=== PATIENT | male | born 1945 | race Caucasian/White ===

== ENCOUNTER → 2017-01-29 | Day surgery (SDC) | payer MEDICARE, OTHER ==
[~2017-01-29] MED LIST: BUPIVACAINE HCL PF 0.75% 30 ML VIAL ONE; CYCL-36 PO; LACTATED RINGER'S 1000 ML INJ 1,000 ML ONE; LIDOCAINE 1.5%/EPINEPHrine 1:200,000 PF SOLN 30 ML AMP ONE; LORTA5 PO; MIDAZOLAM HCL 5 MG/ML VIAL (1 ML) ONE; ONDA4 PO; PROPOFOL 200 MG/20 ML AMP IV ONE; RIVA20 PO; SIMV40TA PO; TAB-TAB PO; TRAZ100 PO; ceFAZolin INJ 1,000 MG VIAL ONE
--- NOTE | 2017-01-30 17:41 | MP ---
cc: YEHUDA PRIETO DATE OF SURGERY 01/29/17 PREOPERATIVE DIAGNOSIS Left shoulder impingement with partial rotator cuff tear. POSTOPERATIVE DIAGNOSIS Left shoulder impingement with partial rotator cuff tear. Labral tear and 30% interstitial biceps tendon tear. SURGEON Dr. Yehuda Prieto BANQUET ATTENDANT SJ Gonzales The surgical procedure was assisted by my Advanced Registered Nurse Practitioner. My WATER MAINTENANCE SUPERVISOR presence was necessary throughout this case for the manipulation and positioning of the surgical extremity. My WATER MAINTENANCE SUPERVISOR was assisting me throughout the duration of this procedure. The skill set of an Advance Registered Nurse Practitioner was medically necessary to complete this procedure. During the surgical case, the surgical technology instructor was working at the back table and the Advance Registered Nurse Practitioner was directly assisting me. PROCEDURE 1. Left shoulder arthroscopic subacromial decompression with partial acromioplasty. 2. Left shoulder arthroscopic rotator cuff repair. 3. Left shoulder extensive debridement of anterior labrum, posterior labrum, and biceps tendon. ANESTHESIA Regional and general. ESTIMATED BLOOD LOSS Minimal. PROCEDURE The patient had regional anesthesia performed. He was then brought back to the operative theater. General anesthesia was performed. He was placed into a lateral decubitus position. He had a well-padded down leg and an axillary roll applied. The patient's left upper extremity was prepped and draped in the usual sterile fashion after he had been placed into 12 pounds of in-line traction. We start with the standard posterior portal followed by anterior portal in the soft spot. The diagnostic arthroscopy the glenohumeral joint showed minimal chondromalacia of the glenohumeral joint. There were no loose bodies in the axillary pouch. There was a [place] complex noted in the anterior labrum. Just superior to that in the anterior superior aspect there was some significant tearing of the superior labrum that was flipping into the joint. This was debrided using an oscillating shaver. We were then able to probe the superior part of the insertion aspect which was found to be intact without detachment from the overlying glenoid. Inspection of the posterior superior labrum showed that there was significant fraying which also had part of this labrum subluxed into the joint. We then debrided this using oscillating shaver. We further evaluated the biceps tendon and found that up by the groove there was 30% interstitial tearing with significant fraying along the interarticular portion near the groove and then going up into the groove. We used an oscillating shaver to debride this portion of the tendon. There was an associated what looked like near full-thickness tear of the under surface of the rotator cuff right in that region as well. The remaining portion of the cuff especially posteriorly looked intact and in good condition. We placed the arthroscope in the subacromial space. We found a very large amount of bursitis and adhesions. These were resected using oscillating shaver. There was a spur of the acromion of least a small degree which was coplaned and resected using a shaver on forward. We did need to use a wand to assist with some bleeding as the bursa was highly vascular. Once we performed a complete bursectomy we were able to evaluate the rotator cuff and based on portal placement we identified the spot where the 80% tear had been identified. We were able to easily complete this using the oscillating shaver confirming again that this was about an 80% tear. We debrided some of the edges of the rotator cuff to get it down to a nice stable edge which turned into a typical U-shaped tear. We cleaned off the bone using the shaver, both an oscillate and forward. We then repaired the cuff using an [employer] swivel lock that had a fiber tape associated with it. We placed this medially. We then threw each limb of the fiber tape into the rotator cuff. We did this one anterior, one posterior and left a space in the middle. That space in the middle we then placed a fiber link which was spaced very nicely in between the fiber tapes. We pulled those three sutures down laterally and then secured them to the greater tuberosity with an [employer] composite swivel lock which had excellent purchase. We took final arthroscopic pictures showing excellent repair. The arthroscopic portals were closed with 2-0 Vicryl followed by 3-0 nylon, was dressed, placed into a sling and swath. Postoperative plan is follow standard rotator cuff repair protocol. MD SHIVA Griggs/HOLLY /2:19 PM /5:20 PM CRISTOPHER
== END | disposition home or self-care (01) ==
LOC: ESDC 11:12
PROVIDERS: ATTEND Orthopaedic Surgery
DX: M75.122 Complete rotator cuff tear or rupture of left shoulder, not specified as traumatic (principal); M75.42 Impingement syndrome of left shoulder; S43.432A Superior glenoid labrum lesion of left shoulder, initial encounter
CPT/HCPCS: 01630; 01991; 29823; 29826; 29827; 64417; C1713; J0690; J2250; J7120